=== PATIENT | male | born 1975 | race Caucasian/White ===

== ENCOUNTER 2019-10-18 17:05 | Emergency (ER) | payer SELFPAY ==
[2019-10-18] MEDS ORDERED: propofoL 100 ML ONE (17:16)
[2019-10-18] MEDS ORDERED: Sodium Chloride 0.9% 10 ML Syringe FLUSH PRN (17:23)
[2019-10-18] MEDS ORDERED: Lactated Ringers 1,000 ML ONE (17:25)
[2019-10-18] MEDS ORDERED: Etomidate 2 MG/ML 20 ML SDV IVPUSH ONE (17:28)
[2019-10-18] MEDS ORDERED: Rocuronium 50 MG/5 ML Vial IVPUSH ONE (17:30)
[2019-10-18] MEDS ORDERED: Sodium Chloride 0.9% 1,000 ML IV SCH (17:30)
--- NOTE | 2019-10-18 17:40 | CR ---
Chest: Portable view of the chest was obtained. Comparison: No previous chest imaging is available. Heart size and mediastinum are normal. Endotracheal tube is seen. Tip lies slightly above the brandi by about 1.4 cm. Nasogastric tube is seen within the stomach. Heart size and mediastinum are within normal limits for portable technique. Central lung markings are increased either due to bronchitis or mild pulmonary vascular congestion. Bony structures are grossly intact. Impression: 1. Increased central lung markings either due to bronchitis or mild pulmonary vascular congestion. 2. Tip of endotracheal tube 1.4 cm above the brandi. Satisfactory position of nasogastric tube. 3. No other acute finding is seen. Diagnostic code #3 This report was dictated in MDT
[2019-10-18] MEDS ORDERED: Pantoprazole 40 MG Vial IVPUSH ONE (17:56)
[2019-10-18] MEDS ORDERED: Lactated Ringers 1,000 ML IV SCH (18:30)
[2019-10-18] MEDS ORDERED: propofoL 100 ML IV SCH (18:30)
[2019-10-18] MEDS ORDERED: Lactated Ringers 1,000 ML IV ONE (19:04)
[2019-10-18] MEDS ORDERED: cefTRIAXone 2 GM in Sodium Chloride 0.9% 100 ML IV ONE (19:05)
--- NOTE | 2019-10-18 19:22 | EDM.PDOC ---
ED HPI GENERAL MEDICAL PROBLEM - General Chief Complaint: Possible Sepsis Stated Complaint: [facility] Time Seen by Provider: 10/18/19 17:22 Source of Information: Reports: EMS, Family History Limitations: Reports: Altered Mental Status - History of Present Illness INITIAL COMMENTS - FREE TEXT/NARRATIVE: The patient presents by [facility] being unresponsive and jaundiced. The patient's mom called. She lives in [place]. She said about 2 weeks ago he had a GI bug with nausea, vomiting and diarrhea. He went to the clinic and was tested for COVID 19 and he was positive. Mom is not sure what day he was tested or what clinic he went to. She has been calling and checking on him. Last night he did not sound good. She called him this afternoon and he did not respond. She called the police and they did a welfare check and they found him unresponsive. His abdomen was distended and he was jaundiced. I talked to mom and she says he does not drink much and he is healthy. He has a history of hypertension at one time but did not need meds. Onset: Gradual Duration: Week(s): Improves with: Reports: None Worsens with: Reports: None Treatments [employer]: Reports: IV/IO, Oxygen - Related Data Allergies Allergy/AdvReac Type Severity Reaction Status Date / Time Unable to Assess Allergy Unverified 10/18/19 17:48 Home Meds: Home Meds Losartan [Cozaar] 50 mg PO DAILY 10/18/19 [History] amLODIPine [Norvasc] 5 mg PO DAILY 10/18/19 [History] Past Medical History Cardiovascular History: Reports: Hypertension, Other (See Below) Other Cardiovascular History: pt. is on HTN medications - Infectious Disease History Infectious Disease History: Reports: Novel Coronavirus Social & Family History - Tobacco Use Smoking Status *Q: Unknown Ever Smoked ED ROS GENERAL - Review of Systems Review Of Systems: Unable To Obtain Reason Not Obtained: Patient is unresponsive ED EXAM, SEPSIS - Physical Exam Exam: See Below Exam Limited By: Altered Mental Status General Appearance: Obtunded Eye Exam: Bilateral Eye: Other (Scleral icterus) Ears: Normal External Exam Nose: Normal Inspection Head: Atraumatic, Normocephalic Neck: Normal Inspection, Supple, Non-Tender Respiratory/Chest: No Respiratory Distress, Decreased Breath Sounds Cardiovascular: No Edema, No Murmur, Tachycardia GI/Abdominal Exam: Soft, Distended Extremities: Other (swelling of both feet including his feet) ED SEPSIS PROCEDURES - Endotracheal Intubation Time of Intubation: 17:10 ET Intubation Indication: Respiratory Failure Preparation: Suction, Balloon Tested, BVM Set Up, Difficult Airway Equip Pre-Oxygenation: Assisted with BVM Anesthesia Meds: Etomidate, Rocuronium Placement: Orotracheal, Cuffed Cords Visualized: Yes ETT Size In mm: 8 Number of Attempts: 1 Confirmed By: CO2 Indicator, Bilateral Breath Sounds, Chest Xray Tube Secured By: By RT EKG INTERPRETATION EKG Date: 10/18/19 Time: 17:37 Rhythm: Other (sinus tachycardia) Rate (Beats/Min): 112 [place]: Normal P-Wave: Present QRS: Normal ST-T: Normal QT: Normal Course - Vital Signs Last Recorded V/S: Last Vital Signs Temp 98.9 F 10/18/19 17:06 Pulse 111 H 10/18/19 17:06 Resp 11 L 10/18/19 17:06 BP 129/76 10/18/19 17:06 Pulse Ox 97 10/18/19 17:06 - Orders/Labs/Meds Orders: Active Orders 24 hr Category Date Time Status Cardiac Monitoring [RC] . DIRECTED Care 10/18/19 17:23 Active EKG Documentation Completion [RC] STAT Care 10/18/19 17:24 Active Oxygen Therapy [RC] PRN Care 10/18/19 17:23 Active Peripheral IV Care [RC] . DIRECTED Care 10/18/19 17:24 Active RASS Sedation Scale [RC] ASDIRECTED Care 10/18/19 18:21 Active RT Ventilator ED, Adult [RC] ASDIRECTED Care 10/18/19 17:30 Active RT Ventilator, Adult [RC] ASDIRECTED Care 10/18/19 18:51 Active CULTURE BLOOD [BC] Stat Lab 10/18/19 18:05 Received CULTURE BLOOD [BC] Stat Lab 10/18/19 18:20 Received PATIENT RETYPE [BBK] Routine Lab 10/18/19 18:28 Ordered RED BLOOD CELLS LP [BBK] Stat Lab 10/18/19 17:05 Results TYPE AND SCREEN [BBK] Stat Lab 10/18/19 17:05 Results Lactated Ringers [Ringers, Lactated] 1,000 ml Med 10/18/19 19:04 Active IV .BOLUS Lactated Ringers [Ringers, Lactated] 1,000 ml Med 10/18/19 18:30 Active IV ASDIRECTED Sodium Chloride 0.9% [Saline Flush] Med 10/18/19 17:23 Active 10 ml FLUSH ASDIRECTED PRN cefTRIAXone [Rocephin] 2 gm Med 10/18/19 19:05 Active Sodium Chloride 0.9% [Normal Saline] 100 ml IV ONETIME propofoL [Diprivan 100 ML] 100 ml Med 10/18/19 18:30 Active IV TITRATE Blood Culture x2 Reflex Set [OM.PC] Stat Ot 10/18/19 17:26 Ordered Desired Level of Sedation (RASS) [AST] Click to Edit Ot 10/18/19 18:21 Ordered Peripheral IV Insertion Adult [OM.PC] Stat Ot 10/18/19 17:23 Ordered Transfuse Red Blood Cells [COMM] Stat Ot 10/18/19 17:51 Ordered Medication Orders Lactated Ringer's (Ringers, Lactated) 1,000 mls @ 125 mls/hr IV ASDIRECTED ROBERT Last Infusion: 10/18/19 18:56 Dose: 999 mls/hr Documented by: Admin: 10/18/19 17:25 Dose: 125 mls/hr Documented by: SHINE Propofol (Diprivan 100 Ml) 100 mls @ 2.722 mls/hr IV TITRATE ROBERT; Protocol Last Admin: 10/18/19 17:20 Dose: 6.61 mcg/kg/min, 3.598 mls/hr Documented by: SHINE Lactated Ringer's (Ringers, Lactated) 1,000 mls @ 1,000 mls/hr IV .BOLUS ONE Stop: 10/18/19 20:03 Ceftriaxone Sodium 2 gm/ (Sodium Chloride) 100 mls @ 200 mls/hr IV ONETIME ONE Stop: 10/18/19 19:34 Sodium Chloride (Saline Flush) 10 ml FLUSH ASDIRECTED PRN PRN Reason: Keep Vein Open Last Admin: 10/18/19 18:22 Dose: 10 ml Documented by: SHINE Labs: Laboratory Tests 10/18/19 10/18/19 10/18/19 Range/Units 17:05 17:05 17:05 WBC 11.23 H (4.23-9.07) K/mm3 RBC 1.49 L (4.63-6.08) M/mm3 Hgb 5.4 L* (13.7-17.5) gm/dl Hct 16.0 L (40.1-51.0) % MCV 107.4 H (79.0-92.2) fl MCH 36.2 H (25.7-32.2) pg MCHC 33.8 (32.2-35.5) g/dl RDW Std Deviation 66.4 H (35.1-43.9) fL Plt Count 367 H (163-337) K/mm3 MPV 10.7 (9.4-12.3) fl Neut % (Auto) 78.4 H (34.0-67.9) % Lymph % (Auto) 6.6 L (21.8-53.1) % Elliott % (Auto) 12.6 H (5.3-12.2) % Eos % (Auto) 0.1 L (0.8-7.0) Baso % (Auto) 0.3 (0.1-1.2) % Neut # (Auto) 8.81 H (1.78-5.38) K/mm3 Lymph # (Auto) 0.74 L (1.32-3.57) K/mm3 Elliott # (Auto) 1.42 H (0.30-0.82) K/mm3 Eos # (Auto) 0.01 L (0.04-0.54) K/mm3 Baso # (Auto) 0.03 (0.01-0.08) K/mm3 Manual Slide Review Abnormal smear PT 25.5 H (9.7-12.0) SECONDS INR 2.42 APTT 33 H (22-31) SECONDS D-Dimer, Quantitative 19.49 H (0.19-0.50) mg/L Puncture Site ABG pH (7.35-7.45) ABG pCO2 (35.0-45.0) mmHg ABG pO2 (80.0-100.0) mmHg ABG HCO3 (22.0-26.0) meq/L ABG O2 Saturation (96.0-97.0) % ABG Base Excess (-2-2.0) Marques Test O2 Delivery Device FiO2 (21.00-100.00) % Tidal Volume cc PEEP cmH20 Sodium 126 L (136-145) mEq/L Potassium 4.6 (3.5-5.1) mEq/L Chloride 92 L (98-107) mEq/L Carbon Dioxide 10 L (21-32) mEq/L Anion Gap 28.6 H (5-15) BUN 150 H (7-18) mg/dL Creatinine 12.4 H (0.7-1.3) mg/dL Est Cr Clr Drug Dosing 8.52 mL/min Estimated GFR (MDRD) 4 (>60) mL/min BUN/Creatinine Ratio 12.1 L (14-18) Glucose 171 H (74-106) mg/dL Lactic Acid (0.4-2.0) mmol/L Calcium 7.3 L (8.5-10.1) mg/dL Magnesium 1.7 L (1.8-2.4) mg/dl Ferritin (26-388) ng/ml Total Bilirubin 21.8 H (0.2-1.0) mg/dL AST 137 H (15-37) U/L ALT 39 (16-63) U/L Alkaline Phosphatase 175 H (46-116) U/L Ammonia (11-32) umol/L Lactate Dehydrogenase 306 H (85-227) U/L Creatine Kinase 96 (39-308) U/L Troponin I 0.177 H* (0.00-0.056) ng/mL C-Reactive Protein 9.9 H* (<1.0) mg/dL NT-Pro-B Natriuret Pep (0-125) pg/mL Total Protein 5.2 L (6.4-8.2) g/dl Albumin 2.1 L (3.4-5.0) g/dl Globulin 3.1 gm/dL Albumin/Globulin Ratio 0.7 L (1-2) Lipase 373 (73-393) U/L Urine Color (Yellow) Urine Appearance (Clear) Urine pH (5.0-8.0) Ur Specific [place] (1.005-1.030) Urine Protein (Negative) Urine Glucose (UA) (Negative) Urine Ketones (Negative) Urine Occult Blood (Negative) Urine Nitrite (Negative) Urine Bilirubin (Negative) Urine Urobilinogen (0.2-1.0) Ur Leukocyte Esterase (Negative) U Hyaline Cast (Auto) (0-5) /lpf Urine RBC (0-5) /hpf Urine WBC (0-5) /hpf Ur Squamous Epith Cells (0-5) /hpf Amorphous Sediment (NOT SEEN) /hpf Urine Bacteria (FEW) /hpf Fine Granular Casts (0-5) /lpf Urine Mucus (FEW) /hpf Urine Opiates Screen (CHIVOA=764) Ur Buprenorphine Scrn (CUTOFF=10) Ur Oxycodone Screen (TEF1GC=398) Urine Methadone Screen (BWP6TG=855) Ur Propoxyphene Screen (TNYXJN=901) Ur Barbiturates Screen (SNQJCR=074) Ur Tricyclics Screen (XVZPEW=891) Ur Phencyclidine Scrn (CUTOFF=25) Ur Amphetamine Screen (LFRCZO=597) U Methamphetamines Scrn (HFEJZE=456) U Benzodiazepines Scrn (UUKGOS=158) U Cocaine Metab Screen (ESRTFI=891) U Marijuana (THC) Screen (CUTOFF=50) Ethyl Alcohol 0.00 (0.00) gm% COVID-19 (ISAIAS) (NEGATIVE) Blood Type Gel Antibody Screen Crossmatch 10/18/19 10/18/19 10/18/19 Range/Units 17:05 17:05 17:05 WBC (4.23-9.07) K/mm3 RBC (4.63-6.08) M/mm3 Hgb (13.7-17.5) gm/dl Hct (40.1-51.0) % MCV (79.0-92.2) fl MCH (25.7-32.2) pg MCHC (32.2-35.5) g/dl RDW Std Deviation (35.1-43.9) fL Plt Count (163-337) K/mm3 MPV (9.4-12.3) fl Neut % (Auto) (34.0-67.9) % Lymph % (Auto) (21.8-53.1) % Elliott % (Auto) (5.3-12.2) % Eos % (Auto) (0.8-7.0) Baso % (Auto) (0.1-1.2) % Neut # (Auto) (1.78-5.38) K/mm3 Lymph # (Auto) (1.32-3.57) K/mm3 Elliott # (Auto) (0.30-0.82) K/mm3 Eos # (Auto) (0.04-0.54) K/mm3 Baso # (Auto) (0.01-0.08) K/mm3 Manual Slide Review PT (9.7-12.0) SECONDS INR APTT (22-31) SECONDS D-Dimer, Quantitative (0.19-0.50) mg/L Puncture Site ABG pH (7.35-7.45) ABG pCO2 (35.0-45.0) mmHg ABG pO2 (80.0-100.0) mmHg ABG HCO3 (22.0-26.0) meq/L ABG O2 Saturation (96.0-97.0) % ABG Base Excess (-2-2.0) Marques Test O2 Delivery Device FiO2 (21.00-100.00) % Tidal Volume cc PEEP cmH20 Sodium (136-145) mEq/L Potassium (3.5-5.1) mEq/L Chloride (98-107) mEq/L Carbon Dioxide (21-32) mEq/L Anion Gap (5-15) BUN (7-18) mg/dL Creatinine (0.7-1.3) mg/dL Est Cr Clr Drug Dosing mL/min Estimated GFR (MDRD) (>60) mL/min BUN/Creatinine Ratio (14-18) Glucose (74-106) mg/dL Lactic Acid 7.8 H* (0.4-2.0) mmol/L Calcium (8.5-10.1) mg/dL Magnesium (1.8-2.4) mg/dl Ferritin 2239 H (26-388) ng/ml Total Bilirubin (0.2-1.0) mg/dL AST (15-37) U/L ALT (16-63) U/L Alkaline Phosphatase (46-116) U/L Ammonia (11-32) umol/L Lactate Dehydrogenase (85-227) U/L Creatine Kinase (39-308) U/L Troponin I (0.00-0.056) ng/mL C-Reactive Protein (<1.0) mg/dL NT-Pro-B Natriuret Pep 1959 H (0-125) pg/mL Total Protein (6.4-8.2) g/dl Albumin (3.4-5.0) g/dl Globulin gm/dL Albumin/Globulin Ratio (1-2) Lipase (73-393) U/L Urine Color (Yellow) Urine Appearance (Clear) Urine pH (5.0-8.0) Ur Specific [place] (1.005-1.030) Urine Protein (Negative) Urine Glucose (UA) (Negative) Urine Ketones (Negative) Urine Occult Blood (Negative) Urine Nitrite (Negative) Urine Bilirubin (Negative) Urine Urobilinogen (0.2-1.0) Ur Leukocyte Esterase (Negative) U Hyaline Cast (Auto) (0-5) /lpf Urine RBC (0-5) /hpf Urine WBC (0-5) /hpf Ur Squamous Epith Cells (0-5) /hpf Amorphous Sediment (NOT SEEN) /hpf Urine Bacteria (FEW) /hpf Fine Granular Casts (0-5) /lpf Urine Mucus (FEW) /hpf Urine Opiates Screen (FJOPMQ=419) Ur Buprenorphine Scrn (CUTOFF=10) Ur Oxycodone Screen (ASJ5VN=339) Urine Methadone Screen (NOG1JH=875) Ur Propoxyphene Screen (HVEMYZ=904) Ur Barbiturates Screen (TYYIKB=276) Ur Tricyclics Screen (ZOCBIQ=221) Ur Phencyclidine Scrn (CUTOFF=25) Ur Amphetamine Screen (RKVEUJ=167) U Methamphetamines Scrn (TOGYYN=192) U Benzodiazepines Scrn (SSWSTO=393) U Cocaine Metab Screen (FLBSVK=924) U Marijuana (THC) Screen (CUTOFF=50) Ethyl Alcohol (0.00) gm% COVID-19 (ISAIAS) (NEGATIVE) Blood Type Gel Antibody Screen Crossmatch 10/18/19 10/18/19 10/18/19 Range/Units 17:05 17:30 17:30 WBC (4.23-9.07) K/mm3 RBC (4.63-6.08) M/mm3 Hgb (13.7-17.5) gm/dl Hct (40.1-51.0) % MCV (79.0-92.2) fl MCH (25.7-32.2) pg MCHC (32.2-35.5) g/dl RDW Std Deviation (35.1-43.9) fL Plt Count (163-337) K/mm3 MPV (9.4-12.3) fl Neut % (Auto) (34.0-67.9) % Lymph % (Auto) (21.8-53.1) % Elliott % (Auto) (5.3-12.2) % Eos % (Auto) (0.8-7.0) Baso % (Auto) (0.1-1.2) % Neut # (Auto) (1.78-5.38) K/mm3 Lymph # (Auto) (1.32-3.57) K/mm3 [place] # (Auto) (0.30-0.82) K/mm3 Eos # (Auto) (0.04-0.54) K/mm3 Baso # (Auto) (0.01-0.08) K/mm3 Manual Slide Review PT (9.7-12.0) SECONDS INR APTT (22-31) SECONDS D-Dimer, Quantitative (0.19-0.50) mg/L Puncture Site ABG pH (7.35-7.45) ABG pCO2 (35.0-45.0) mmHg ABG pO2 (80.0-100.0) mmHg ABG HCO3 (22.0-26.0) meq/L ABG O2 Saturation (96.0-97.0) % ABG Base Excess (-2-2.0) Marques Test O2 Delivery Device FiO2 (21.00-100.00) % Tidal Volume cc PEEP cmH20 Sodium (136-145) mEq/L Potassium (3.5-5.1) mEq/L Chloride (98-107) mEq/L Carbon Dioxide (21-32) mEq/L Anion Gap (5-15) BUN (7-18) mg/dL Creatinine (0.7-1.3) mg/dL Est Cr Clr Drug Dosing mL/min Estimated GFR (MDRD) (>60) mL/min BUN/Creatinine Ratio (14-18) Glucose (74-106) mg/dL Lactic Acid (0.4-2.0) mmol/L Calcium (8.5-10.1) mg/dL Magnesium (1.8-2.4) mg/dl Ferritin (26-388) ng/ml Total Bilirubin (0.2-1.0) mg/dL AST (15-37) U/L ALT (16-63) U/L Alkaline Phosphatase (46-116) U/L Ammonia (11-32) umol/L Lactate Dehydrogenase (85-227) U/L Creatine Kinase (39-308) U/L Troponin I (0.00-0.056) ng/mL C-Reactive Protein (<1.0) mg/dL NT-Pro-B Natriuret Pep (0-125) pg/mL Total Protein (6.4-8.2) g/dl Albumin (3.4-5.0) g/dl Globulin gm/dL Albumin/Globulin Ratio (1-2) Lipase (73-393) U/L Urine Color [place] H (Yellow) Urine Appearance Slt cloudy H (Clear) Urine pH 5.0 (5.0-8.0) Ur Specific [place] 1.015 (1.005-1.030) Urine Protein 1+ H (Negative) Urine Glucose (UA) Negative (Negative) Urine Ketones Trace H (Negative) Urine Occult Blood Negative (Negative) Urine Nitrite Negative (Negative) Urine Bilirubin 3+ H (Negative) Urine Urobilinogen 1.0 (0.2-1.0) Ur Leukocyte Esterase Negative (Negative) U Hyaline Cast (Auto) 20-30 H (0-5) /lpf Urine RBC 0-5 (0-5) /hpf Urine WBC 5-10 H (0-5) /hpf Ur Squamous Epith Cells 0-5 (0-5) /hpf Amorphous Sediment Few H (NOT SEEN) /hpf Urine Bacteria Few (FEW) /hpf Fine Granular Casts 5-10 H (0-5) /lpf Urine Mucus Few (FEW) /hpf Urine Opiates Screen Negative (TJEXWF=052) Ur Buprenorphine Scrn Negative (CUTOFF=10) Ur Oxycodone Screen Negative (TRI5DI=706) Urine Methadone Screen Negative (HEI9LD=841) Ur Propoxyphene Screen Negative (DHIKMZ=778) Ur Barbiturates Screen Negative (MOQNFK=692) Ur Tricyclics Screen Negative (ZTBVSS=203) Ur Phencyclidine Scrn Negative (CUTOFF=25) Ur Amphetamine Screen Negative (EWUVGW=188) U Methamphetamines Scrn Negative (BKYQIU=475) U Benzodiazepines Scrn Negative (SPQNIN=358) U Cocaine Metab Screen Negative (PRZTYY=106) U Marijuana (THC) Screen Negative (CUTOFF=50) Ethyl Alcohol (0.00) gm% COVID-19 (ISAIAS) (NEGATIVE) Blood Type A POSITIVE Gel Antibody Screen Negative Crossmatch See Detail 10/18/19 10/18/19 10/18/19 Range/Units 17:58 18:05 18:25 WBC (4.23-9.07) K/mm3 RBC (4.63-6.08) M/mm3 Hgb (13.7-17.5) gm/dl Hct (40.1-51.0) % MCV (79.0-92.2) fl MCH (25.7-32.2) pg MCHC (32.2-35.5) g/dl RDW Std Deviation (35.1-43.9) fL Plt Count (163-337) K/mm3 MPV (9.4-12.3) fl Neut % (Auto) (34.0-67.9) % Lymph % (Auto) (21.8-53.1) % Elliott % (Auto) (5.3-12.2) % Eos % (Auto) (0.8-7.0) Baso % (Auto) (0.1-1.2) % Neut # (Auto) (1.78-5.38) K/mm3 Lymph # (Auto) (1.32-3.57) K/mm3 Elliott # (Auto) (0.30-0.82) K/mm3 Eos # (Auto) (0.04-0.54) K/mm3 Baso # (Auto) (0.01-0.08) K/mm3 Manual Slide Review PT (9.7-12.0) SECONDS INR APTT (22-31) SECONDS D-Dimer, Quantitative (0.19-0.50) mg/L Puncture Site Rt radial ABG pH 7.28 L (7.35-7.45) ABG pCO2 28.0 L (35.0-45.0) mmHg ABG pO2 120.0 H (80.0-100.0) mmHg ABG HCO3 12.7 L (22.0-26.0) meq/L ABG O2 Saturation 97.3 H (96.0-97.0) % ABG Base Excess -12.7 L (-2-2.0) Marques Test Positive O2 Delivery Device Ventilator FiO2 0.00 L (21.00-100.00) % Tidal Volume 500.0 cc PEEP 5.0 cmH20 Sodium (136-145) mEq/L Potassium (3.5-5.1) mEq/L Chloride (98-107) mEq/L Carbon Dioxide (21-32) mEq/L Anion Gap (5-15) BUN (7-18) mg/dL Creatinine (0.7-1.3) mg/dL Est Cr Clr Drug Dosing mL/min Estimated GFR (MDRD) (>60) mL/min BUN/Creatinine Ratio (14-18) Glucose (74-106) mg/dL Lactic Acid (0.4-2.0) mmol/L Calcium (8.5-10.1) mg/dL Magnesium (1.8-2.4) mg/dl Ferritin (26-388) ng/ml Total Bilirubin (0.2-1.0) mg/dL AST (15-37) U/L ALT (16-63) U/L Alkaline Phosphatase (46-116) U/L Ammonia 208 H (11-32) umol/L Lactate Dehydrogenase (85-227) U/L Creatine Kinase (39-308) U/L Troponin I (0.00-0.056) ng/mL C-Reactive Protein (<1.0) mg/dL NT-Pro-B Natriuret Pep (0-125) pg/mL Total Protein (6.4-8.2) g/dl Albumin (3.4-5.0) g/dl Globulin gm/dL Albumin/Globulin Ratio (1-2) Lipase (73-393) U/L Urine Color (Yellow) Urine Appearance (Clear) Urine pH (5.0-8.0) Ur Specific [place] (1.005-1.030) Urine Protein (Negative) Urine Glucose (UA) (Negative) Urine Ketones (Negative) Urine Occult Blood (Negative) Urine Nitrite (Negative) Urine Bilirubin (Negative) Urine Urobilinogen (0.2-1.0) Ur Leukocyte Esterase (Negative) U Hyaline Cast (Auto) (0-5) /lpf Urine RBC (0-5) /hpf Urine WBC (0-5) /hpf Ur Squamous Epith Cells (0-5) /hpf Amorphous Sediment (NOT SEEN) /hpf Urine Bacteria (FEW) /hpf Fine Granular Casts (0-5) /lpf Urine Mucus (FEW) /hpf Urine Opiates Screen (UCTFGV=103) Ur Buprenorphine Scrn (CUTOFF=10) Ur Oxycodone Screen (TTQ0SN=825) Urine Methadone Screen (TIW8EM=568) Ur Propoxyphene Screen (OHAWGF=693) Ur Barbiturates Screen (DNCQHZ=227) Ur Tricyclics Screen (BFUUND=698) Ur Phencyclidine Scrn (CUTOFF=25) Ur Amphetamine Screen (XEFYZO=279) U Methamphetamines Scrn (ETKIKG=759) U Benzodiazepines Scrn (FKUWBG=117) U Cocaine Metab Screen (RWCZRZ=848) U Marijuana (THC) Screen (CUTOFF=50) Ethyl Alcohol (0.00) gm% COVID-19 (ISAIAS) Negative (NEGATIVE) Blood Type Gel Antibody Screen Crossmatch Meds: Medications Generic Name Dose Route Start Last Admin Trade Name Freq PRN Reason Stop Dose Admin Lactated Ringer's 1,000 mls @ 125 mls/hr 10/18/19 18:30 10/18/19 18:56 Ringers, Lactated IV 999 mls/hr ASDIRECTED ROBERT Infusion Propofol 100 mls @ 2.722 mls/hr 10/18/19 18:30 10/18/19 17:20 Diprivan 100 Ml IV 6.61 mcg/kg/min TITRATE ROBERT 3.598 mls/hr Administration Protocol 5 MCG/KG/MIN Lactated Ringer's 1,000 mls @ 1,000 mls/hr 10/18/19 19:04 Ringers, Lactated IV 10/18/19 20:03 .BOLUS ONE Ceftriaxone Sodium 2 gm/ 100 mls @ 200 mls/hr 10/18/19 19:05 Sodium Chloride IV 10/18/19 19:34 ONETIME ONE Sodium Chloride 10 ml 10/18/19 17:23 10/18/19 18:22 Saline Flush FLUSH 10 ml ASDIRECTED PRN Administration Keep Vein Open Discontinued Medications Generic Name Dose Route Start Last Admin Trade Name Freq PRN Reason Stop Dose Admin Etomidate 20 mg 10/18/19 17:28 10/18/19 17:11 Amidate IVPUSH 10/18/19 17:29 20 mg ONETIME ONE Administration Propofol Confirm 10/18/19 17:16 10/18/19 18:25 Diprivan 100 Ml Administered 10/18/19 17:17 Not Given Dose 100 mls @ as directed .ROUTE .STK-MED ONE Sodium Chloride 1,000 mls @ 125 mls/hr 10/18/19 17:30 Normal Saline IV ASDIRECTED ROBERT Lactated Ringer's Confirm 10/18/19 17:25 10/18/19 18:26 Ringers, Lactated Administered 10/18/19 17:26 Not Given Dose 1,000 mls @ as directed .ROUTE .STK-MED ONE Pantoprazole Sodium 80 mg 10/18/19 17:56 10/18/19 18:28 Protonix Iv IVPUSH 10/18/19 17:57 80 mg BOLUS ONE Administration Rocuronium [place] 100 mg 10/18/19 17:30 10/18/19 17:12 Zemuron IVPUSH 10/18/19 17:31 100 mg ONETIME ONE Administration - Re-Assessments/Exams Free Text/Narrative Re-Assessment/Exam: 10/18/19 19:33 I ordered a medical alert. The patient was obtunded and I decided to secure his airway. I used an 8 tube and I used etomidate 20mg and rocuronium 100mg IV. I put an NG tube in and there was dark black/red secretions suctioned from the stomach. I then ordered a propofol drip for sedation. I also ordered an EKG, CXR, labs, blood cultures, ABG, and UA. His EKG shows a sinus tachycardia. His CXR shows increased central lung markings due to bronchitis or mild pulmonary vascular congestion. Tip of ET tube 1.4cm above the brandi. Satisfactory position of the NG tube. No other acute finding is seen. I did pull back the tube 1cm. His WBC was elevated at 11.23. His Hgb was low at 5.4. I have typed and screen 2 units and I will transfuse. His D-dimer is elevated at 19.79. His pH is low at 7.28. His pCO2 is 28. His pO2 is elevated at 120. His Na is low at 126. His anion gap is elevated at 28.6. His creatinine is elevated at 12.4. His GFR is 4. His glucose is 171. His lactic acid is elevated at 7.8. I have ordered a 30ml/kg bolus and rocephin 2 grams IV. His calcium is low at 7.3. His magnesium is low at 1.7. His ferritin is high at 2,239. His total bili is 21.8. His AST is 137. His alk phos was elevated at 175. His troponin was elevated at 0.177. His LDH was elevated at 300. His CRP was elevated at 9.9. His BNP was elevated at 1,959. His ammonia level was over 200. His COVID 19 was negative but with the history of positive COVID 19 last week, he still is positive. He is also in severe sepsis. His BP is low now at 103. His is starting to get the blood now and more fluids. I called [facility] in [place], [facility] in [place] and [facility] in [place] and all hospitals were full. I called [facility] in [place] and talked with Dr Guzman and he accepted the patient. 10/18/19 19:45 Critical care time is 2 hours. Departure - Departure Time of Disposition: 19:45 Disposition: DC/Tfer to Acute Hospital 02 Condition: Critical Clinical Impression: Severe sepsis, Hyponatremia, COVID-19, Hypocalcemia Renal failure Qualifiers: Renal failure chronicity: acute Acute renal failure type: unspecified Qualified Code(s): N17.9 - Acute kidney failure, unspecified Liver failure with hepatic coma Qualifiers: Liver failure chronicity: acute Qualified Code(s): K72.01 - Acute and subacute hepatic failure with coma Respiratory failure Qualifiers: Chronicity: acute Respiratory failure complication: unspecified whether with hypoxia or hypercapnia Qualified Code(s): J96.00 - Acute respiratory failure, unspecified whether with hypoxia or hypercapnia - Discharge Information Sepsis Event Note (ED) - Evaluation Sepsis Screening Result: Possible Severe Sepsis Risk - Focused Exam Vital Signs: Vital Signs Temp Pulse Resp BP Pulse Ox 10/18/19 17:06 98.9 F 111 H 11 L 129/76 97 - My Orders Last 24 Hours: My Active Orders 10/18/19 17:05 RED BLOOD CELLS LP [BBK] Stat TYPE AND SCREEN [BBK] Stat 10/18/19 17:23 Cardiac Monitoring [RC] . DIRECTED Oxygen Therapy [RC] PRN Sodium Chloride 0.9% [Saline Flush] 10 ml FLUSH ASDIRECTED PRN Peripheral IV Insertion Adult [OM.PC] Stat 10/18/19 17:24 EKG Documentation Completion [RC] STAT Peripheral IV Care [RC] . DIRECTED 10/18/19 17:26 Blood Culture x2 Reflex Set [OM.PC] Stat 10/18/19 17:30 RT Ventilator ED, Adult [RC] ASDIRECTED 10/18/19 17:51 Transfuse Red Blood Cells [COMM] Stat 10/18/19 18:05 CULTURE BLOOD [BC] Stat 10/18/19 18:20 CULTURE BLOOD [BC] Stat 10/18/19 18:21 RASS Sedation Scale [RC] ASDIRECTED Desired Level of Sedation (RASS) [AST] Click to Edit 10/18/19 18:28 PATIENT RETYPE [BBK] Routine 10/18/19 18:30 Lactated Ringers [Ringers, Lactated] 1,000 ml IV ASDIRECTED propofoL [Diprivan 100 ML] 100 ml IV TITRATE 10/18/19 18:51 RT Ventilator, Adult [RC] ASDIRECTED 10/18/19 19:04 Lactated Ringers [Ringers, Lactated] 1,000 ml IV .BOLUS 10/18/19 19:05 cefTRIAXone [Rocephin] 2 gm Sodium Chloride 0.9% [Normal Saline] 100 ml IV ONETIME - Assessment/Plan Last 24 Hours: My Active Orders 10/18/19 17:05 RED BLOOD CELLS LP [BBK] Stat TYPE AND SCREEN [BBK] Stat 10/18/19 17:23 Cardiac Monitoring [RC] . DIRECTED Oxygen Therapy [RC] PRN Sodium Chloride 0.9% [Saline Flush] 10 ml FLUSH ASDIRECTED PRN Peripheral IV Insertion Adult [OM.PC] Stat 10/18/19 17:24 EKG Documentation Completion [RC] STAT Peripheral IV Care [RC] . DIRECTED 10/18/19 17:26 Blood Culture x2 Reflex Set [OM.PC] Stat 10/18/19 17:30 RT Ventilator ED, Adult [RC] ASDIRECTED 10/18/19 17:51 Transfuse Red Blood Cells [COMM] Stat 10/18/19 18:05 CULTURE BLOOD [BC] Stat 10/18/19 18:20 CULTURE BLOOD [BC] Stat 10/18/19 18:21 RASS Sedation Scale [RC] ASDIRECTED Desired Level of Sedation (RASS) [AST] Click to Edit 10/18/19 18:28 PATIENT RETYPE [BBK] Routine 10/18/19 18:30 Lactated Ringers [Ringers, Lactated] 1,000 ml IV ASDIRECTED propofoL [Diprivan 100 ML] 100 ml IV TITRATE 10/18/19 18:51 RT Ventilator, Adult [RC] ASDIRECTED 10/18/19 19:04 Lactated Ringers [Ringers, Lactated] 1,000 ml IV .BOLUS 10/18/19 19:05 cefTRIAXone [Rocephin] 2 gm Sodium Chloride 0.9% [Normal Saline] 100 ml IV ONETIME
[2019-10-19] MEDS ORDERED: Lactated Ringers 1,000 ML IV ONE (05:27)
== END 2019-10-18 21:20 ==
LOC: JD.ED 17:05
DX: U07.1 COVID-19 (principal); A41.9 Sepsis, unspecified organism; R65.20 Severe sepsis without septic shock; N17.9 Acute kidney failure, unspecified; J96.00 Acute respiratory failure, unspecified whether with hypoxia or hypercapnia
CPT/HCPCS: 36415; 36430; 36600; 71045; 80053; 80306; 80307; 81001; 82140; 82550; 82728; 82803; 83605; 83615; 83690; 83735; 83880; 84484; 85025; 85379; 85610; 85730; 86140; 86850; 86900; 86901; 86922; 87040; 87635; 93005; 96365; 96366; 96375; 99285; C9113; J0696; J2704; J3490; J7050; J7120; P9016; 31500; 93010; 99291; 99292; U0002